=== PATIENT | female | born 1990 | race African-American/Black ===

== ENCOUNTER 2024-12-09 13:29 | Emergency (ER) | payer MEDICAID ==
[~2024-12-09] VITALS: Ht 157.5 cm; Wt 100.0 kg
[2024-12-09 13:36] VITALS: O2SAT 99
[2024-12-09 13:38] VITALS: BP 129/73; PULSE 78; RESP 16; TEMP 36.8; O2SAT 99
[2024-12-09] MEDS ORDERED: ACET-2708 MT (14:20)
[2024-12-09] MEDS ORDERED: LIDO700A15 TP (14:20)
[2024-12-09] MEDS: ACETAMINOPHEN 500MG TABLET PO ONE (14:41)
== END 2024-12-09 15:13 | disposition home or self-care (01) ==
LOC: ER 13:29
DX: M25.511 Pain in right shoulder (principal); Z79.899 Other long term (current) drug therapy; V89.2XXA Person injured in unspecified motor-vehicle accident, traffic, initial encounter; Y93.89 Activity, other specified; Y92.89 Other specified places as the place of occurrence of the external cause; Y99.8 Other external cause status
CPT/HCPCS: 12002; 12013; 29240; 73030; 99283; 99285; A4565